=== PATIENT | male | born 1935 | race Caucasian/White ===

== ENCOUNTER 2016-07-23 10:55 | Emergency (ER) | payer MEDICARE, SELFPAY ==
[2016-07-23 11:48] VITALS: TEMP 98.1; BMI 29.1
--- NOTE | 2016-07-23 13:13 | EDPRACDOC ---
- General Information Chief Complaint: Drug-Induced Skin Rash Stated Complaint: RASH Time Seen by Provider: 07/23/16 12:58 Mode Of Arrival: Car Home Medications: Home Medications Amlodipine [Norvasc] 5 mg PO DAILY 08/22/14 Metoprolol Tartrate 25 mg PO BID 08/22/14 Potassium Chloride 50 meq PO DAILY 08/22/14 Simvastatin 20 mg PO DAILY 08/22/14 Aspirin [Aspirin EC] 81 mg PO DAILY 01/25/16 HydrOXYzine HCl (Antihistamine [Atarax] 25 mg PO Q6 PRN #30 tab 07/23/16 Prednisone [Deltasone, Orasone] 2 tabs PO DAILY #20 tab 07/23/16 Tamsulosin HCl [Flomax] 0.4 mg PO QAM 07/23/16 Triamcinolone [Kenalog, Aristocort] 1 applic TOP DIR 07/23/16 Allergies/Adverse Reactions: Allergies Allergy/AdvReac Type Severity Reaction Status Date / Time codeine [Codeine] Allergy Unknown Nausea only Verified 07/23/16 11:48 TYLENOL COLD AND FLU SEVERE Allergy Hives* Uncoded 07/23/16 11:49 - History of Present Illness Onset: 4 DAYS HPI: PT PRESENTS TODAY WITH ITCHY RASH TO ABDOMEN AND LEFT ANTERIOR LOWER LEG X 1 DAY. PT STATES THAT HE TOOK TYLENOL SEVERE COLD AND FLU LAST NIGHT AND WOKE UP WITH ITCHY RASH. NO OTHER CHANGES IN MEDS OR DETERGENTS. DENIES CP, SHOB , ABD PAIN, N/V/D. NO APPARENT DISTRESS. Rash Location: Reports: Chest, Legs Quality: Reports: Pruritic, Red Known Exposure To: Reports: Medication Relevant History of: Reports: None Irritability: Moderate Pain Severity: None Associated Signs and Symptoms: Reports: None ED Past Medical History - History Reviewed Yes Nurses notes reviewed and agree except as marked - Patient Medical History Cardiac History: Reports: Coronary Artery Disease, Hypertension, Cardiac Catheterization, Hypercholesterolemia Respiratory History: Denies: Pneumonia GI/ History: Reports: Kidney Stones (Bilateral), Ulcer, Diverticulosis Musculoskeletal History: Reports: Arthritis Psychological History: Denies: Substance Use Disorder Surgical History: Reports: Cholecystectomy, Angioplasty, Cardiac Catheterization , Hernia Surgery - Family Medical History Reports: Cancer (Father: Possible cancer of liver / GB.) - Social Medical History Smoking Status: Never smoker Social History: Denies: Substance Use Disorder EDM Review of Systems - Review of Systems ROS Negative Except as Marked: Yes All systems reviewed and were negative except as marked Constitutional: No Symptoms Reported Ears: No Symptoms Reported Throat: No Symptoms Reported Nose: No Symptoms Reported Respiratory: No Symptoms Reported Cardiovascular: No Symptoms Reported Gastrointestinal: No Symptoms Reported Neurological: No Symptoms Reported Musculoskeletal: No Symptoms Reported Integumentary: Itching, Rash - Physical Exam Constitutional: Alert (Awake), No apparent distress Oriented to: Time, Person, Place Last recorded Vital Signs: Last Vital Signs Temp 98.1 F 07/23/16 11:46 Pulse 74 07/23/16 11:46 Resp 18 07/23/16 11:46 BP 193/91 H 07/23/16 11:46 Pulse Ox 97 07/23/16 11:46 Oxygen Pulse Oxygen Saturation 97 O2 Device Room Air Oxygen Flow Rate Fraction of Inspired Oxygen ( FIO2) - HEENT Head: Normal Eye Exam: Normal Oropharynx: Normal Neck: Normal, Denies Pain, Midline - Respiratory/Cardiovascular Respiratory: Normal - CTA Cardiovascular: Normal - GI Palpation: Normal Tenderness: Non tender, Other (NOTED RED LACY RASH TO ABDOMEN; BLANCHABLE, NO PETECHIA; NO SWELLING; DENIES PAIN, ONLY ITCHING) - Musculoskeletal Back: Normal Extremities: Normal - Integumentary Skin: Rash Lymphatics: Normal - Neurologic Cerebellar: Normal Mood Description: Normal Thought: Coherent Perception: Normal Decision Time to Discharge: 13:11 - Departure Disposition: Home Condition: Good Final Diagnosis: Allergic reaction caused by a drug Qualifiers: Encounter type: initial encounter Qualified Code(s): T78.40XA - Allergy, unspecified, initial encounter Instructions: Acute Rash (ED) Education/Counseling Given To: Patient Education/Counseling Given Regarding: Diagnosis, Treatment, Follow Up Referrals: None,No Provider [Primary Care Provider] - One Week Didier Lopez MD [Staff Physician] - One Week Prescriptions: New HydrOXYzine HCl (Antihistamine [Atarax] 25 mg PO Q6 PRN #30 tab PRN Reason: Itching Prednisone [Deltasone, Orasone] 2 tabs PO DAILY #20 tab No Action Potassium Chloride 50 meq PO DAILY Amlodipine [Norvasc] 5 mg PO DAILY Metoprolol Tartrate 25 mg PO BID Simvastatin 20 mg PO DAILY Aspirin [Aspirin EC] 81 mg PO DAILY Triamcinolone [Kenalog, Aristocort] 1 applic TOP DIR Tamsulosin HCl [Flomax] 0.4 mg PO QAM Additional Instructions: DO NOT TAKE MEDICATION ANY MORE. FOLLOW UP WITH DERMATOLOGY IF SYMPTOMS PERSIST.
[2016-07-23 13:28] VITALS: BP 193/89; PULSE 62
== END 2016-07-23 13:24 | disposition home or self-care (01) ==
LOC: EDMC 10:55
DX: T50.905A Adverse effect of unspecified drugs, medicaments and biological substances, initial encounter (principal); X58.XXXA Exposure to other specified factors, initial encounter
CPT/HCPCS: 99282